=== PATIENT | female | born 2000 | race Caucasian/White ===

== ENCOUNTER 2021-04-16 12:34 | Emergency (ER) | payer MEDICAID ==
--- NOTE | 2021-04-16 13:21 | ERPHSYRPT ---
- History of Present Illness Time Seen by Provider: 04/16/21 13:00 Source: patient Exam Limitations: no limitations Patient Subjective Stated Complaint: Pt is 12 weeks and woke up this morning bleeding, pt did have intercourse last night, pt is not in any pain Triage Nursing Assessment: Pt was brought to the ER by her boyfriend, phan elva morales, denies pain, bleeding since she woke up, tearful, first , had intercourse last night, denies any issues with this , Dr Basilio is OB, skin n/w/d, pulses normal, doesn't appear to be in any distress Physician History: Patient is a 20-year-old female G1, PO, A0, M0 presents to our ED with complaints of painless vaginal bleeding. Patient states she is currently 12 weeks . Patient states she had intercourse last night. Patient awoke this morning bleeding. Bleeding is not resolved. Patient has no other complaints. No nausea vomiting. No diaphoresis. No rash. No fever. No urinary complaints. No dysuria or hematuria. Symptoms are mild to moderate in intensity. No specific worsening improving factors. Patient otherwise healthy. She voices no other complaints or concerns at this time. Timing/Duration: today Severity: moderate Modifying Factors: Improves With: nothing Associated Symptoms: denies symptoms Allergies/Adverse Reactions: No Known Drug Allergies Allergy (Verified 04/16/21 12:49) Home Medications: Ondansetron [Ondansetron Odt ] 1 tab SL Q46H PRN 04/16/21 [History] Pnv No.103/Folic/Om3s/Fish Oil [ Gummies] 1 each PO DAILY 04/16/21 [History] Travel Risk - International Travel Have you traveled outside of the country in past 3 weeks: No - Coronavirus Screening Are you exhibiting any of the following symptoms?: No Close contact with a COVID-19 positive Pt in past 14-21 Days: No - Vaccine Status Have you recieved a Covid-19 vaccination: No - Review of Systems Constitutional: No Symptoms, No Fever, No Chills Eyes: No Symptoms Ears, Nose, & Throat: No Symptoms Respiratory: No Symptoms, No Cough, No Dyspnea Cardiac: No Symptoms, No Chest Pain, No Edema, No Syncope Abdominal/Gastrointestinal: No Symptoms, No Abdominal Pain, No Nausea, No Vomiting, No Diarrhea Genitourinary Symptoms: No Symptoms, No Dysuria Musculoskeletal: No Symptoms, No Back Pain, No Neck Pain Skin: No Symptoms, No Rash Neurological: No Symptoms, No Dizziness, No Focal Weakness, No Sensory Changes Psychological: No Symptoms Endocrine: No Symptoms Hematologic/Lymphatic: No Symptoms Immunological/Allergic: No Symptoms All Other Systems: Reviewed and Negative - Past Medical History Pertinent Past Medical History: Yes Other Medical History: hypogylcemia - Past Surgical History Past Surgical History: No - Social History Smoking Status: Never smoker Exposure to second hand smoke: No Drug Use: none Patient Lives Alone: No - Female History Hx Now: Yes Expected Date of Delivery: 10/29/21 - Nursing Vital Signs Nursing Vital Signs: Initial Vital Signs Temperature 98.2 F 04/16/21 12:42 Pulse Rate 86 04/16/21 12:42 Blood Pressure 132/85 04/16/21 12:42 O2 Sat by Pulse Oximetry 99 04/16/21 12:42 Pain Scale Pain Intensity 0 - Physical Exam General Appearance: no apparent distress, alert Eye Exam: PERRL/EOMI, eyes nml inspection Ears, Nose, Throat Exam: normal ENT inspection, TMs normal, pharynx normal, moist mucous membranes Neck Exam: normal inspection, non-tender, supple, full range of motion Respiratory Exam: normal breath sounds, lungs clear, airway intact, No respiratory distress Cardiovascular Exam: regular rate/rhythm, normal heart sounds, normal peripheral pulses Gastrointestinal/Abdomen Exam: soft, normal bowel sounds, No tenderness, No mass Pelvic Exam: normal external exam, other (Cervical os closed.), No adnexal mass, No cervical motion tenderness, No vaginal bleeding, No uterine tenderness, No vaginal discharge Back Exam: normal inspection, normal range of motion, No CVA tenderness, No vertebral tenderness Extremity Exam: normal inspection, normal range of motion, pelvis stable Neurologic Exam: alert, oriented x 3, cooperative, normal mood/affect, nml cerebellar function, nml station & gait, sensation nml, No motor deficits Skin Exam: normal color, warm, dry, No rash Lymphatic Exam: No adenopathy SpO2 Interpretation: normal SpO2: 99 O2 Delivery: Room Air - Course Nursing assessment & vital signs reviewed: Yes - Radiology Ultrasound Exam OB Ultrasound: Other (Single viable IUP 11 weeks 3 days. Heart rate 159. Nuchal translucency measures 4.6 mm. This may correlate to aneuploidy O/chromosomal abnormalities.) Ordered Tests: Active Orders 24 hr Category Date Time Status OB <14 WKS 1ST GESTATION [US] Stat Exams 04/16/21 13:10 Completed CBC W DIFF Stat Lab 04/16/21 13:55 Completed CMP Stat Lab 04/16/21 13:55 Completed CULTURE,URINE Stat Lab 04/16/21 14:17 Received HCG, Quantitative (Inhouse) Stat Lab 04/16/21 13:55 Received UA W/RFX UR CULTURE Stat Lab 04/16/21 14:17 Completed Wet Prep Stat Lab 04/16/21 13:12 Ordered Medication Summary Discontinued Medications Generic Name Dose Route Start Last Admin Trade Name Freq PRN Reason Stop Dose Admin Nitrofurantoin Macrocrystals 100 mg 04/16/21 14:53 04/16/21 14:55 Nitrofurantoin Macro 100 Mg Capsule PO 04/16/21 14:54 100 mg STAT ONE Administration Nitrofurantoin Macrocrystals Confirm 04/16/21 14:54 Nitrofurantoin Macro 100 Mg Capsule Administered 04/16/21 14:55 Dose 100 mg .ROUTE .rapt.fm[employer] ONE Lab/Rad Data: Laboratory Result Diagrams 04/16/21 13:55 04/16/21 13:55 Laboratory Results 04/16/21 04/16/21 04/16/21 Range/Units 14:17 13:55 13:55 WBC (4.0-10.5) K/mm3 RBC (4.1-5.4) M/mm3 Hgb (12.0-16.0) gm/dl Hct (35-47) % MCV (78-100) fl MCH (26-32) pg MCHC (32-36) g/dl RDW (11.5-14.0) % Plt Count (150-450) K/mm3 MPV (7.5-11.0) fl Gran % (36.0-66.0) % Eos # (Auto) (0-0.5) Absolute Lymphs (auto) (1.0-4.6) Absolute Monos (auto) (0.0-1.3) Lymphocytes % (24.0-44.0) % Monocytes % (0.0-12.0) % Eosinophils % (0.00-5.0) % Basophils % (0.0-0.4) % Absolute Granulocytes (1.4-6.9) Basophils # (0-0.4) Sodium 136 L (137-145) mmol/L Potassium 3.7 (3.5-5.1) mmol/L Chloride 106 (98-107) mmol/L Carbon Dioxide 22 (22-30) mmol/L Anion Gap 11.3 (5-15) MEQ/L BUN 8 (7-17) mg/dL Creatinine 0.63 (0.52-1.04) mg/dL Estimated GFR > 60.0 ML/MIN Glucose 79 (74-106) mg/dL Calcium 9.1 (8.4-10.2) mg/dL Total Bilirubin 0.40 (0.2-1.3) mg/dL AST 18 (14-36) U/L ALT 11 (0-35) U/L Alkaline Phosphatase 50 (38-126) U/L Serum Total Protein 6.6 (6.3-8.2) g/dL Albumin 3.8 (3.5-5.0) g/dL Urine Color YELLOW (YELLOW) Urine Appearance SLIGHTLY CLOUDY (CLEAR) Urine pH 6.0 (5-6) Ur Specific [place] 1.018 (1.005-1.025) Urine Protein 30 (Negative) Urine Ketones NEGATIVE (NEGATIVE) Urine Blood LARGE (0-5) [place]/ul Urine Nitrite NEGATIVE (NEGATIVE) Urine Bilirubin NEGATIVE (NEGATIVE) Urine Urobilinogen 4 (0-1) mg/dL Ur Leukocyte Esterase SMALL (NEGATIVE) Urine WBC (Auto) 26-50 (0-5) /HPF Urine RBC (Auto) NONE (0-2) /HPF U Epithel Cells (Auto) RARE (FEW) /HPF Urine Bacteria (Auto) FEW (NEGATIVE) /HPF Urine Mucus (Auto) SLIGHT (NEGATIVE) /HPF Urine Culture Reflexed YES (NO) Urine Glucose NEGATIVE (NEGATIVE) mg/dL ABO Group O Rh Factor POSITIVE Antibody Screen NEGATIVE (NEGATIVE) 04/16/21 Range/Units 13:55 WBC 10.4 (4.0-10.5) K/mm3 RBC 4.20 (4.1-5.4) M/mm3 Hgb 13.1 (12.0-16.0) gm/dl Hct 37.6 (35-47) % MCV 89.5 (78-100) fl MCH 31.2 (26-32) pg MCHC 34.8 (32-36) g/dl RDW 13.0 (11.5-14.0) % Plt Count 272 (150-450) K/mm3 MPV 9.7 (7.5-11.0) fl Gran % 79.3 H (36.0-66.0) % Eos # (Auto) 0.03 (0-0.5) Absolute Lymphs (auto) 1.33 (1.0-4.6) Absolute Monos (auto) 0.77 (0.0-1.3) Lymphocytes % 12.8 L (24.0-44.0) % Monocytes % 7.4 (0.0-12.0) % Eosinophils % 0.3 (0.00-5.0) % Basophils % 0.2 (0.0-0.4) % Absolute Granulocytes 8.28 H (1.4-6.9) Basophils # 0.02 (0-0.4) Sodium (137-145) mmol/L Potassium (3.5-5.1) mmol/L Chloride (98-107) mmol/L Carbon Dioxide (22-30) mmol/L Anion Gap (5-15) MEQ/L BUN (7-17) mg/dL Creatinine (0.52-1.04) mg/dL Estimated GFR ML/MIN Glucose (74-106) mg/dL Calcium (8.4-10.2) mg/dL Total Bilirubin (0.2-1.3) mg/dL AST (14-36) U/L ALT (0-35) U/L Alkaline Phosphatase (38-126) U/L Serum Total Protein (6.3-8.2) g/dL Albumin (3.5-5.0) g/dL Urine Color (YELLOW) Urine Appearance (CLEAR) Urine pH (5-6) Ur Specific [place] (1.005-1.025) Urine Protein (Negative) Urine Ketones (NEGATIVE) Urine Blood (0-5) [place]cadio/ul Urine Nitrite (NEGATIVE) Urine Bilirubin (NEGATIVE) Urine Urobilinogen (0-1) mg/dL Ur Leukocyte Esterase (NEGATIVE) Urine WBC (Auto) (0-5) /HPF Urine RBC (Auto) (0-2) /HPF U Epithel Cells (Auto) (FEW) /HPF Urine Bacteria (Auto) (NEGATIVE) /HPF Urine Mucus (Auto) (NEGATIVE) /HPF Urine Culture Reflexed (NO) Urine Glucose (NEGATIVE) mg/dL ABO Group Rh Factor Antibody Screen (NEGATIVE) - Progress Progress: improved Progress Note: Patient reassessed. She is comfortable. Patient denies pain. Urinary tract infection observed on UA. Patient received a dose of Macrobid in our ED. A prescription for the same was for the patient's pharmacy. Patient is Rh+. No indication for RhoGam. 04/16/21 14:52 Ultrasound reveals a nuchal translucency of 4.6 mm. This may indicate aneuploidy O/chromosome abnormalities. However genetic testing is normal. Case discussed with Dr. Sohan steward. Patient will be referred to maternal- medicine for further evaluation. Patient updated on findings. Portions of this note were created with voice recognition technology. There may be grammatical, spelling, punctuation or sound alike errors 04/16/21 15:[address] Bridgett Will see patient in: office Counseled pt/family regarding: lab results, diagnosis, need for follow-up, rad results - Departure Departure Disposition: Home Clinical Impression: Vaginal bleeding, Urinary tract infection Condition: Stable Critical Care Time: No Referrals: DOCTOR,NO FAMILY [Primary Care Provider] - Follow up/PCP as directed CHERISE BASILIO DO [ACTIVE STAFF] - Follow up/PCP as directed Additional Instructions: Discharge/Care Plan RAMOSMIGUELANGEL PIA was seen on 04/16/21 in the Emergency Room. The patient was counseled regarding Diagnosis,Lab results, Imaging studies, need for follow up and when to return to the Emergency Room. Prescriptions given: Discharge Note I have spoken with the patient and/or caregivers. I have explained the patient's condition, diagnosis and treatment plan based on the information available to me at this time. I have answered the patient's and/or caregiver's questions and addressed any concerns. The patient and/or caregivers have as good understanding of the patient's diagnosis, condition and treatment plan as can be expected at this point. The vital signs have been stable. The patient's condition is stable and appropriate for discharge from the emergency department. The patient will pursue further outpatient evaluation with the primary care physician or other designated or consulting physician as outlined in the discharge instructions. The patient and/or caregivers are agreeable to this plan of care and follow-up instructions have been explained in detail. The patient and/or caregivers have received these instruction. The patient/and or caregivers are aware that any significant change in condition or worsening of symptoms should prompt an immediate return to this or the closest emergency department or call 911. Prescriptions: Nitrofurantoin Macro 100 mg [Macrobid 100MG Capsule] 100 mg PO BID 7 Days #14 cap
[2021-04-16 14:05] LABS: Absolute Neutrophil Ct (ANC) 8.28 (1.4-6.9); Basophil (Absolute #) 0.02 (0-0.4); Eosinophil % 0.3 % (0.00-5.0); Eosinophil (Absolute #) 0.03 (0-0.5); Hematocrit 37.6 % (35-47); Hemoglobin 13.1 gm/dl (12.0-16.0); Lymphocyte (Absolute #) 1.33 (1.0-4.6); Lymphocytes % 12.8 % (24.0-44.0); Mean Cell Volume 89.5 fl (78-100); Mean Corpuscular Hemoglobin 31.2 pg (26-32); Mean Corpuscular Hgb Concent. 34.8 g/dl (32-36); Mean Platelet Volume 9.7 fl (7.5-11.0); Monocyte (Absolute #) 0.77 (0.0-1.3); Monocytes % 7.4 % (0.0-12.0); Neutrophil % 79.3 % (36.0-66.0); Platelet Count 272 K/mm3 (150-450); White Blood Count 10.4 K/mm3 (4.0-10.5)
--- NOTE | 2021-04-16 14:19 | XRAY ---
Indication: First trimester bleeding. Two-dimensional transabdominal and transvaginal early OB ultrasound performed. Comparison: None Single viable intrauterine with mean crown-rump length measuring 4.62 cm corresponding to 11 weeks 3 days. heart rate 159 bpm. Nuchal translucency measures 4.6 mm, soft marker for aneuploidy/chromosomal abnormalities. No abnormal subchorionic fluid. Neither ovaries are visualized. No suspicious adnexal mass or free fluid. Impression: 1. Single viable intrauterine measuring 11 weeks 3 days. Expected date confinement is November 02, 2021. Nothing acute. 2. Thickened nuchal translucency which has been associated with aneuploidy/chromosomal abnormalities.
[2021-04-16 14:37] LABS: Appearance SLIGHTLY CLOUDY (CLEAR); Bacteria FEW /HPF (NEGATIVE); Bilirubin NEGATIVE (NEGATIVE); Blood LARGE Ery/ul (0-5); Epithelial Cells RARE /HPF (FEW); Glucose NEGATIVE (NEGATIVE); Ketones NEGATIVE (NEGATIVE); Leukocyte Esterase SMALL (NEGATIVE); Mucus SLIGHT /HPF (NEGATIVE); Nitrite NEGATIVE (NEGATIVE); Protein,Urine Dip 30 (Negative); Specific Gravity 1.018 (1.005-1.025); Urobilinogen 4 mg/dL (0-1); WBC 26-50 /HPF (0-5)
[2021-04-16 14:48] LABS: ABO TYPING O; Antibody Screen NEGATIVE (NEGATIVE); RH TYPING POSITIVE
[2021-04-16 14:52] LABS: ALBUMIN 3.8 g/dL (3.5-5.0); ALKALINE PHOSPHATASE 50 U/L (38-126); ANION GAP 11.3 MEQ/L (5-15); BLOOD UREA NITROGEN 8 mg/dL (7-17); CHLORIDE 106 mmol/L (98-107); Calcium 9.1 mg/dL (8.4-10.2); Carbon Dioxide 22 mmol/L (22-30); Creatinine 1 0.63 mg/dL (0.52-1.04); EST GLOMERULAR FILTRATION RATE > 60.0 ML/MIN; Glucose 79 mg/dL (74-106); Potassium 3.7 mmol/L (3.5-5.1); SGOT/AST 18 U/L (14-36); SGPT/ALT 11 U/L (0-35); SODIUM 136 mmol/L (137-145); Total Protein 6.6 g/dL (6.3-8.2)
[2021-04-16] MEDS ORDERED: Macrobid 100MG Capsule PO ONE (14:53)
[2021-04-16] MEDS ORDERED: Macrobid 100MG Capsule ONE (14:54)
[2021-04-16 15:24] LABS: Bacteria Moderate; Clue Cells None Seen; Trichomonas None Seen
[2021-04-16 15:25] LABS: Red Blood Cells None Seen; White Blood Cells Rare; Yeast None Seen
[2021-04-16 15:36] VITALS: BP 102/64; PULSE 88; O2SAT 98
[2021-04-16 16:02] LABS: CHLAMYDIA DNA NOT DETECTED (NEGATIVE); GC DNA Probe NOT DETECTED (NEGATIVE)
== END 2021-04-16 15:32 | disposition home or self-care (01) ==
LOC: ED 12:34
DX: O20.9 Hemorrhage in early pregnancy, unspecified (principal); Z3A.12 12 weeks gestation of pregnancy; O23.41 Unspecified infection of urinary tract in pregnancy, first trimester; N39.0 Urinary tract infection, site not specified
CPT/HCPCS: 36415; 76801; 80053; 81001; 84702; 85025; 86850; 86900; 86901; 87086; 87210; 87491; 87591; 99284; A9270-GY